=== PATIENT | female | born 1930 | race Caucasian/White ===

== ENCOUNTER 2016-08-13 20:41 | Inpatient (IN) | payer OTHER, MEDICARE ==
[~2016-08-13] VITALS: Ht 152.4 cm; Wt 39.0 kg
--- NOTE | ~2016-08-13 | O ---
[facility] [place] [address] OPERATIVE REPORT Name: GARCIAMORRISRACHEL Room #: 544-P ADM IN M.R.#: [id number] Admission: 08/13/16 Attend Phys: Joe Romero MD Discharge: Date of : 28 Report #: [id number] THIS REPORT FOR: //name// CC: Liz Romero DATE OF SERVICE: 08/14/2016 SURGEON: Cuate Méndez M.D. CELL BIOLOGY SCIENTIST SURGEON: None. SERVICE: Orthopedics facility at [facility] PREOPERATIVE DIAGNOSES: 1. Right greater trochanteric fracture malunion. 2. Acute right hip intertrochanteric fracture. PROCEDURE: 1. Open reduction and internal fixation with intramedullary device of the right hip 2. Increased surgical difficulty due to previous trochanteric fracture malunion ANESTHESIA TYPE: General endotracheal. ESTIMATED BLOOD LOSS: 700 mL. COMPLICATIONS: None. DRAINS: None. SPECIMENS: None. FLUIDS: She received crystalloid as well as 2 units of packed red cells. 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 She sustained a fall yesterday and had a highly comminuted intertrochanteric hip fracture extending from the previous malunion distally. The comminution was severe enough that the lesser trochanter was fractured into 4-5 pieces. She was seen in the emergency room and admitted to the hospitalist service and then was medically optimized and cleared to proceed with surgical treatment. Risks, benefits, alternatives and indications for surgery were discussed with her son, who gave full informed consent as her power of litigation attorney. [address] [address] OPERATIVE REPORT Name: GERALDO GARCIA Room #: 544-P [facility] IN M.R.#: [id number] Admission: 08/13/16 Attend Phys: Joe Romero MD Discharge: Date of : 29 Report #: [id number] Risks include but not limited to pain, bleeding, infection, injury to nerves or blood vessels, malunion, nonunion, need for further surgery including revision, need for transfusion as well as complications related to anesthesia such as stroke, heart attack, pulmonary complications, thromboembolic disease and . We did discuss the possibility of loss of function and the high rate of morbidity associated with significant hip fractures. He gave full informed consent. DESCRIPTION OF PROCEDURE: After the right lower extremity was correctly identified in the preoperative holding area as the operative extremity, the patient was taken to the operating room, placed supine on operating table and general endotracheal anesthesia was induced without complication. Bilateral feet were placed in traction boots and she was placed in a scissored position on the fracture table. All bony prominences and subcutaneous nerves were padded appropriately. Prophylactic antibiotics with 1 gram Ancef were administered at the appropriate time. She later received a gram of vancomycin after the bleeding occurred and the transfusion was initiated so that she had antibiotic within her new blood volume. A timeout procedure was performed. The right lower extremity reduction was assessed carefully. This was a very difficult reduction to achieve for 3 reason. First, she had a malunion of the greater trochanter, so this precluded normal anatomic, radiographic and surigical relationships; second, she had a highly comminuted fracture; and third, she had an apex anterior deformity with an anterolateral cortical spike originating from the femoral neck secondary to significant osteoporotic metaphyseal bone. A reduction at the optimal position was then identified and secured, and the right lower extremity was prepped and draped in standard sterile fashion. An incision was made proximal to the greater trochanter. Dissection was taken down in a percutaneous fashion to the trochanter, where it was felt that the optimal position for the guidepin would be considering her previous malunion and the comminution that was present. Adequate positioning could not be achieved with the reduction secondary to the apex anterior flexed position of the neck component. So, second incision was made more distally and an open reduction with the bone clamp was performed to allow passage of the guide pin followed by the entry reamer and then the ball tip guidewire was advanced down to the distal femur. Decision was made to place a long femoral nail due to the amount of comminution as it was felt that this will provide better rotational stability throughout the shaft of the femur including distal interlock fixation. The canal was then sequentially reamed to size 13.5 mm reamer and then the nail which was selected was a 12 mm x 34 cm nail was advanced down the femur with a guidewire in standard fashion on the appropriate level. Based on the degree of [facility] [address] [place] [address] OPERATIVE REPORT Name: GERALDO GARCIA Room #: 544-P ADM IN M.R.#: [id number] Admission: 08/13/16 Attend Phys: Joe Romero MD Discharge: Date of : 28 Report #: [id number] comminution laterally, the compression screw had to be placed slightly higher in the femoral head than was typical so that we could achieve some degree of fixation laterally and span the comminuted metaphysis. The guide pin was then advanced into the femoral head under multiple planes of fluoroscopy. The reduction was held and it was over reamed and then the compression screw was placed in a standard fashion with an 85-mm compression screw. Some compression was dialed in and then due to the type of fracture, the sub screw was locked, creating a fixed angle device. A perfect aniak technique was then used to place the interlocking screw distally and x-ray was used to confirm that appropriate position of the screw was achieved with it traversing through the nail. At this point, final x-rays were taken and it was felt that the adequate positioning was based on the severity of the injury and her pre-existing malunion and anatomy. All wounds were thoroughly irrigated and the fascia was closed with 0 Vicryl suture in [id number] fashion and skin was closed with 2-0 Vicryl sutures, followed by edelmira and a sterile dressing was applied. The patient was extubated initially to the hospital bed and taken to recovery room in stable condition. There were no complications. All counts were recorded as correct. I was scrubbed and present throughout the case. <ELECTRONICALLY SIGNED> By: Cuate Méndez MD 08/14/16 1718 1331 1452 Cuate Méndez MD /nt
--- NOTE | ~2016-08-13 | EKG ---
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 : 1930 Requested By: Joe Romero Order Number: [id number] MD: Wilfredo Roy Measurements Intervals [place] Rate: 103 P: 84 NC: 142 QRS: 27 QRSD: 97 T: -89 QT: 348 QTc: 456 Interpretive Statements Sinus tachycardia Right atrial enlargement Repol abnrm suggests ischemia, inferior leads Artifact in lead(s) I,II,III,aVR,aVL,aVF,V1,V3,V5 and baseline wander in lead(s) V5 No previous ECG available for comparison Electronically Signed On 08-14-2016 8:22:20 [employer] by Wilfredo Roy [email or web address] <ELECTRONICALLY SIGNED> By: Wilfredo Roy MD 08/14/16821 05 05 Wilfredo Roy MD /EPI
--- NOTE | ~2016-08-13 | HC ---
[facility] [place] [address] CONSULTATION Name: GERALDO GARCIA Room #: 544-P ADM IN M.R.#: [id number] Admission: 08/13/16 Attend Phys: Joe Romero MD Discharge: Date of : 29 Report #: [id number] THIS REPORT FOR: //name// CC: Liz Romero CHIEF COMPLAINT: Right hip fracture. HISTORY OF PRESENT ILLNESS: This is an 85-year-old patient presenting after a fall yesterday, brought in last evening to the Emergency Room, determined to have a right hip fracture and admitted for management of this. PAST MEDICAL HISTORY: Significant for hypertension, dementia. MEDICATIONS: Donepezil, Avapro, verapamil. ALLERGIES: None. SOCIAL HISTORY: Significant for prior history of tobacco use and alcohol use. REVIEW OF SYSTEMS: As above. PHYSICAL EXAMINATION: VITAL SIGNS: Notes a blood pressure of 158/78, temperature is 36.7, pulse is 94, and respiratory rate is 20. GENERAL: Awake, alert, in no distress. EXTREMITIES: Right lower extremity is externally rotated and shortened. There is some edema, proximally. She otherwise has motor intact distally. LABORATORY STUDIES: Notes a hemoglobin of 9.5. X-rays notes a significantly comminuted 4-part type intertrochanteric hip fracture of the right hip. IMPRESSION: Right hip intertrochanteric hip fracture. PLAN: Would be to proceed with a right hip intramedullary nail once she is medically cleared. Thank you for allowing me to participate in the care of this pleasant patient. <ELECTRONICALLY SIGNED> By: Angel Harrell MD 08/15/16 0831 0723 Angel Harrell MD /nt
--- NOTE | ~2016-08-13 | EKG ---
[address] [address] ELECTROCARDIOGRAM REPORT Name: GARCIAGERALDO Room #: 544-P ADM IN M.R.#: [id number] Admission: 08/13/16 Attend Phys: Joe Romero MD Discharge: Date of : 29 Report #: [id number] THIS REPORT FOR: //name// [facility] ED Test Date: 2016-08-13 Test Time: 21:18:50 Pat Name: GERALDO GARCIA Department: Room: [facility] Gender: F Direct Sales Representative: MZOOK : 1930 Requested By: Sonja Zaragoza Order Number: [id number] MD: Wilfredo Roy Measurements Intervals [place] Rate: 104 P: 86 [place]: 144 QRS: 29 QRSD: 84 T: -76 QT: 406 QTc: 534 Interpretive Statements Sinus tachycardia Atrial premature complex Borderline ST depression, diffuse leads No previous ECG available for comparison Electronically Signed On 08-14-2016 8:22:35 [employer] by Wilfredo Roy [email or web address] <ELECTRONICALLY SIGNED> By: Wilfredo Roy MD 08/14/16 0822 17 17 Wilfredo Roy MD /TYLER
[2016-08-13 20:41] VITALS: BP 158/78
[2016-08-13] MEDS ORDERED: VASOTEC 2.5MG2.5 M1 PO (20:46)
[2016-08-13] MEDS ORDERED: ARICEPT 5 MG TAB5 MG PO (20:46)
[2016-08-13] MEDS ORDERED: VERAPAMIL ER100 MG PO (20:46)
[2016-08-13 21:46] LABS: HEMATOCRIT 35.4 % (37.0-47.0); HEMOGLOBIN 12.1 gm/dL (12.0-15.0); MCH 33.5 pg (26.0-34.0); MCHC 34.3 % (28.0-37.0); MCV 97.6 fL (80.0-100.0); PLATELET COUNT 332 thou/uL (150-400); RBC 3.62 mil/uL (4.20-5.00); RDW 13.1 % (10.5-14.5); WBC 14.1 thou/uL (4.0-11.0)
[2016-08-13 21:47] LABS: MANUAL DIFF YES
[2016-08-13 21:50] LABS: CALCIUM 9.1 mg/dL (8.5-10.1); CREATININE 2.3 mg/dL (0.6-1.3); POTASSIUM 4.9 mmol/L (3.5-5.1)
[2016-08-13 21:59] LABS: URINE BILIRUBIN NEGATIVE (Negative); URINE BLOOD TRACE (Negative); URINE COLOR YELLOW; URINE GLUCOSE-RANDOM* NEGATIVE (Negative); URINE KETONES TRACE (Negative); URINE NITRITE NEGATIVE (Negative); URINE PROTEIN (DIPSTICK) TRACE (Negative); URINE SPECIFIC GRAVITY >= 1.030 (1.003-1.035); URINE UROBILINOGEN 0.2 E.U./dl (0.2-1.0)
[2016-08-13 22:18] LABS: ABSOLUTE NEUTROPHILS 12.5 thou/uL (1.4-8.2); TOTAL CELL COUNT 100
[2016-08-13 22:19] LABS: ANISOCYTOSIS 1+
[2016-08-14] VITALS (11 sets, daily range): BP systolic 106–150; BP diastolic 38–66
[2016-08-14] LABS: APTT 25.2 Seconds (24.5-32.8); PROTIME 10.5 Seconds (9.3-11.4)
[2016-08-14 06:02] LABS: HEMATOCRIT 28.9 % (37.0-47.0); MCH 33.3 pg (26.0-34.0); MCHC 32.9 % (28.0-37.0); MCV 101.4 fL (80.0-100.0); RBC 2.85 mil/uL (4.20-5.00); WBC 11.6 thou/uL (4.0-11.0)
[2016-08-14 06:08] LABS: HEMOGLOBIN 9.5 gm/dL (12.0-15.0)
[2016-08-14 06:25] LABS: CALCIUM 7.7 mg/dL (8.5-10.1); CREATININE 1.8 mg/dL (0.6-1.3)
[2016-08-14 11:21] LABS: TROPONIN-I 0.05 ng/mL (<0.04-0.07)
[2016-08-15 04:37] VITALS: BP 120/57
[2016-08-15 04:59] LABS: HEMATOCRIT 28.9 % (37.0-47.0); HEMOGLOBIN 10.1 gm/dL (12.0-15.0); MCH 32.2 pg (26.0-34.0); MCHC 35.1 % (28.0-37.0); RBC 3.15 mil/uL (4.20-5.00); WBC 9.3 thou/uL (4.0-11.0)
[2016-08-15 05:12] LABS: MCV 91.7 fL (80.0-100.0); PLATELET COUNT 166 thou/uL (150-400)
[2016-08-15 05:13] LABS: MANUAL DIFF YES
[2016-08-15 05:14] LABS: ALBUMIN 2.2 g/dL (3.4-5.0); CREATININE 0.9 mg/dL (0.6-1.3); MAGNESIUM 1.9 mg/dL (1.8-2.4); POTASSIUM 3.7 mmol/L (3.5-5.1); TOTAL BILIRUBIN 0.5 mg/dL (<0.1-1.0); TOTAL PROTEIN 4.6 g/dL (6.4-8.2)
[2016-08-15 07:16] LABS: ABSOLUTE NEUTROPHILS 7.4 thou/uL (1.4-8.2); PLATELET ESTIMATE NORMAL; TOTAL CELL COUNT 100
[2016-08-15 07:17] LABS: ANISOCYTOSIS 1+
[2016-08-15 08:02] VITALS: BP 125/69
[2016-08-15 20:45] VITALS: BP 120/56
[2016-08-16 03:29] VITALS: BP 121/56
[2016-08-16 04:48] LABS: HEMATOCRIT 24.2 % (37.0-47.0); HEMOGLOBIN 8.2 gm/dL (12.0-15.0); MCH 31.7 pg (26.0-34.0); MCHC 33.7 % (28.0-37.0); MCV 93.9 fL (80.0-100.0); RBC 2.58 mil/uL (4.20-5.00); WBC 7.9 thou/uL (4.0-11.0)
[2016-08-16 05:28] LABS: CREATININE 0.6 mg/dL (0.6-1.3); POTASSIUM 3.1 mmol/L (3.5-5.1)
[2016-08-16 08:15] VITALS: BP 123/67
[2016-08-16] MEDS ORDERED: PAIN & FEVER325 MG PO (16:18)
[2016-08-16] MEDS ORDERED: NORCO 5-325 TA1 EACH PO (16:18)
[2016-08-16] MEDS ORDERED: NICOTINE TRANSD14 M1 TRANSDERM (16:18)
[2016-08-16 16:27] VITALS: BP 108/61
[2016-08-27] MEDS ORDERED: BISACODYL SUPP10 MG RECTAL (11:39)
[2016-08-27] MEDS ORDERED: COLACE100 MG PO (11:40)
[2016-08-27] MEDS ORDERED: ENOXAPARIN30 MG/0.1 SUBQ (11:41)
[2016-08-27] MEDS ORDERED: ONDANSETRON HCL4 M2 PO (11:44)
[2016-08-27] MEDS ORDERED: PROTONIX40 M1 PO (11:56)
[2016-08-27] MEDS ORDERED: ZANAFLEX4 MG PO (12:00)
[2016-08-27] MEDS ORDERED: VITAMINC500 PO (12:02)
[2016-08-27] MEDS ORDERED: HYDROCODONE-AP1 EAC6 PO (12:09)
[2016-08-27] MEDS ORDERED: VASOTEC 2.5MG2.5 M1 PO (19:59)
[2016-08-27] MEDS ORDERED: VERAPAMIL ER180 MG PO (20:00)
[2016-09-19] MEDS ORDERED: VANCOMYCIN1 GM/2502 IVPB (14:28)
[2016-09-19] MEDS ORDERED: ROCEPHIN 11 GM/1001 IVPB (14:36)
== END 2016-08-16 17:47 | DRG 480 ==
LOC: ER 20:41 → 5S 23:37 → EROBS 23:37 → 5S 08-14 00:30
PROVIDERS: Emergency Medicine; Nurse Practitioner; Orthopaedic Surgery Sports Medicine
PROC: 0QS606Z Reposition Right Upper Femur with Intramedullary Internal Fixation Device, Open Approach (ICD-10-PCS; principal; 2016-08-14)
PROC: 30233N1 Transfusion of Nonautologous Red Blood Cells into Peripheral Vein, Percutaneous Approach (ICD-10-PCS; 2016-08-14)
DX: S72.141A Displaced intertrochanteric fracture of right femur, initial encounter for closed fracture (principal); E43 Unspecified severe protein-calorie malnutrition; N17.9 Acute kidney failure, unspecified; M62.82 Rhabdomyolysis; D62 Acute posthemorrhagic anemia; Z68.1 Body mass index [BMI] 19.9 or less, adult; E86.0 Dehydration; I10 Essential (primary) hypertension; F03.90 Unspecified dementia, unspecified severity, without behavioral disturbance, psychotic disturbance, mood disturbance, and anxiety; F10.21 Alcohol dependence, in remission; F17.210 Nicotine dependence, cigarettes, uncomplicated; D72.829 Elevated white blood cell count, unspecified; R00.0 Tachycardia, unspecified; Z28.21 Immunization not carried out because of patient refusal; W18.39XA Other fall on same level, initial encounter; Y93.89 Activity, other specified; Y92.89 Other specified places as the place of occurrence of the external cause; Y99.8 Other external cause status
CPT/HCPCS: 10785; 50010; 50101; 50386; 50445; 51412; 51538; 55430; 56525; 56526; 57092; 62110; 62900; 65002; 65090; 70005